=== PATIENT | male | born 1965 | race Caucasian/White ===

== ENCOUNTER → 2017-01-20 | Day surgery (SDC) | payer BC ==
[~2017-01-20] VITALS: Ht 177.8 cm; Wt 93.4 kg
[~2017-01-20] MED LIST: IMODIUM2 MG PO; ZOCOR40 MG PO
--- NOTE | ~2017-01-20 | HP ---
PATIENT'S NAME: CAMERON MATTHEWS [facility] AGE: 51 Y [address] 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 He denies any gross hematuria or coke-colored urine. Ultrasound study was done and this showed some questionable changes in the kidney, possible duplication. He is seen now for cystoscopy and retrogrades. He has had no dysuria, burning, or other voiding symptoms. He has a past history of having a stone in 1996. No other history of urinary tract disease or infections. He was born and raised in [place], [place], presently [facility] and drives a truck locally. He denies any history of smoking. No family history of renal problems. He had an appendectomy about 15 years ago for some vague abdominal discomfort. No other GI symptoms. PAST MEDICAL HISTORY: Illnesses: None. OPERATIONS: Appendectomy. ALLERGIES: NONE KNOWN. PHYSICAL EXAMINATION: GENERAL: A well-developed, well-nourished male. VITAL SIGNS: 150/80 and 205 pounds. CHEST: Clear. HEART: Normal sinus rhythm. ABDOMEN: Soft with no palpable masses. : Normal penis. Testicles are normal. He does have a left varicocele. Prostate is slightly enlarged, smooth, and benign. PATIENT'S NAME: CAMERON MATTHEWS [facility] AGE: 51 Y [address] ROOM: [place] [address] LOCATION: [facility] ADMIT DATE: 01/20/2017 History & Physical DISCHARGE DATE: FAMILY PHYSICIAN: Elsa Fuller ATTENDING PHYSICIAN: Renée Butler RECTAL: Negative. IMPRESSION: Microscopic hematuria with abnormal ultrasound. PLAN: As above. RENÉE BUTLER MD EKL/modl /[id number] CC: PAYAM Myles D: 550 T: 3 HISTORY & PHYSICAL
--- NOTE | ~2017-01-20 | OR ---
PATIENT'S NAME: CAMERON MATTHEWS [facility] AGE: 51 Y [address] ROOM: [place] [address] LOCATION: [facility] [place] ADMIT DATE: 01/20/2017 OR/Procedure Report DISCHARGE DATE: FAMILY PHYSICIAN: Elsa Fuller ATTENDING PHYSICIAN: Renée Butler SURGEON: Renée Butler MD PATTERN CHANGER: DATE OF PROCEDURE: 01/20/2017 PREOPERATIVE DIAGNOSIS: Microscopic hematuria. POSTOPERATIVE DIAGNOSES: 1. Normal bladder. 2. Total complete duplication of both kidneys. PROCEDURES: Cystoscopy and retrogrades. DESCRIPTION OF PROCEDURE: After adequate anesthesia, he was prepped and draped. A 21 scope was passed. The anterior urethra was normal. Prostatic fossa was normal in length with no abnormalities. The bladder was examined with the 30- and 70-degree lens and was normal. No tumors, stones, or inflammation were noted. Bilateral retrograde pyelograms were done with a cone blocking catheter. He tolerated the procedure fine. RETROGRADE PYELOGRAM REPORT: The initial films showed normal bony structures. After the injection of contrast media, there was complete duplication of both kidneys. Kidneys were normal with no filling defects or other abnormalities. IMPRESSION: Complete duplication of both kidneys. RENÉE BUTLER MD EKL/modl /[id number] d: 01/20/17 0752 t: 01/21/17 0503, OPERATIVE SUMMARY
== END | disposition disaster alternative care site (69) ==
LOC: GPOC 01-15 10:00 → GSDC 05:19 → GPOC 05:30
PROC: BT14ZZZ Fluoroscopy of Kidneys, Ureters and Bladder (ICD-10-PCS; principal; 2017-01-20)
DX: R31.29 Other microscopic hematuria (principal); Z90.49 Acquired absence of other specified parts of digestive tract
CPT/HCPCS: J2001; J7120